=== PATIENT | male | born 2005 | race Caucasian/White ===

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

== ENCOUNTER 2023-08-28 12:23 | Emergency (ER) | payer OTHER ==
[~2023-08-28] VITALS: Ht 185.4 cm; Wt 77.1 kg
[2023-08-28] MEDS ORDERED: SODIUM CHLORIDE 0.9% 1,000 ML IV ONE ×2 (12:45)
[2023-08-28] MEDS ORDERED: Naloxone Hydrochloride 2 MG/2 ML SYR IV ONE (12:50)
[2023-08-28] MEDS ORDERED: LORazepam 2 MG/ML VIAL IV ONE (12:50)
[2023-08-28] MEDS ORDERED: SODIUM CHLORIDE 0.9% 2,000 ML IV ONE (12:52)
[2023-08-28 12:58] LABS: HEMATOCRIT 41.1 % (42.0-52.0); MEAN CELL VOLUME 92.4 fl (80.0-94.0); MEAN CORPUSCULAR HGB 31.2 pg (27.0-31.0); MEAN CORPUSCULAR HGB CONC 33.8 g/dl (33.0-37.0); MEAN PLATELET VOLUME 10.1 fl (9.6-12.3); PLATELET COUNT AUTOMATED 277 10*3/uL (130-400); RED BLOOD COUNT 4.45 10*6/uL (4.50-5.90); RED CELL DISTRI WIDTH 12.7 % (0-14.5)
[2023-08-28] MEDS ORDERED: LORazepam 2 MG/ML VIAL ONE (12:59)
[2023-08-28 13:00] LABS: MANUAL DIFF REFLEX YES
[2023-08-28] MEDS ORDERED: Midazolam Hydrochloride 5 MG/5 ML VIAL IV ONE (13:10)
[2023-08-28 13:19] LABS: POTASSIUM 4.5 mmol/L (3.4-5.1)
[2023-08-28] MEDS ORDERED: PROPOFOL 100 ML IV ONE ×2 (13:20→15:49)
[2023-08-28 13:26] LABS: BILIRUBIN Negative (Negative); BLOOD 2+ (Negative); CLARITY Cloudy (Clear); COLOR Yellow (Yellow); GLUCOSE Negative (Negative); KETONE 1+ (Negative); LEUKO ESTERASE Negative (Negative); NITRITE Negative (Negative); PH 5.5 (4.5-8.0); SPECIFIC GRAVITY 1.015 (1.001-1.030); UROBILINOGEN 0.2 E.U./dl (0.0-1.0)
[2023-08-28 13:27] LABS: PLATELET SUFFICIENCY NORMAL (NORMAL); POLYCHROMASIA SLIGHT; TOTAL CELLS COUNTED 100 #CELLS; VACUOLATION OF NEUTROPHILS SLIGHT
[2023-08-28 13:28] LABS: BURR CELLS MODERATE; OVALOCYTES FEW
[2023-08-28 13:32] LABS: URINE AMPHETAMINES Negative (1000ng/ml); URINE BARBITURATES Negative (200ng/ml); URINE BENZODIAZEPINES Negative (200ng/ml); URINE CANNABINOIDS (THC) Positive (50ng/ml); URINE COCAINE Negative (300ng/ml); URINE METHADONE Negative (300ng/ml); URINE OPIATES Negative (300ng/ml); URINE PHENCYCLIDINE Negative (25ng/ml)
[2023-08-28 13:45] LABS: ARTERIAL BLOOD GAS PH 7.258 (7.35-7.45)
[2023-08-28 13:46] LABS: ABG BASE EXCESS -7.8 mmol/L (-2.0-2.0)
[2023-08-28] MEDS ORDERED: Vancomycin Hydrochloride 250 ML IV ONE (13:55)
[2023-08-28] MEDS ORDERED: Ceftriaxone Sodium 1 GM/10 ML SYR IV ONE (14:35)
[2023-08-28] MEDS ORDERED: Dexamethasone Sodium Phospha 10 MG/1 ML VIAL IV ONE (14:35)
[2023-08-28] MEDS ORDERED: ACETAMINOPHEN 650 MG SUPP R ONE (14:45)
[2023-08-28] MEDS ORDERED: Ketamine Hydrochloride 500 MG/10 ML VIAL IV ONE (14:45)
[2023-08-28] MEDS ORDERED: Midazolam Hydrochloride 2 MG/2 ML VIAL ONE (15:01)
[2023-08-28] MEDS ORDERED: Ciprofloxacin Hydrochloride 500 MG TAB PO ONE (16:45)
[2023-08-28] MEDS ORDERED: ETOMIDATE 20 MG/10 ML VIAL IV ONE (21:59)
[2023-08-28] MEDS ORDERED: ROCURONIUM BROMIDE 50 MG/5 ML SYRINGE IV ONE (21:59)
== END 2023-08-28 16:37 | disposition short-term general hospital (02) ==
LOC: ED 12:23
PROVIDERS: Nurse Practitioner Family
DX: R56.9 Unspecified convulsions (principal); D72.829 Elevated white blood cell count, unspecified